=== PATIENT | female | born 1940 | race Caucasian/White ===

== ENCOUNTER 2017-06-02 19:23 | Observation (INO) | payer MEDICARE, OTHER ==
[2017-06-02] MEDS ORDERED: Zofran 4 MG/2 ML VIAL IV ONE (19:55)
[2017-06-02] MEDS ORDERED: BABY ASPIRIN 81 MG CHEW PO ONE (19:55)
[2017-06-02] MEDS ORDERED: PROTONIX 40 MG IV IV ONE ×2 (19:58→20:06)
[2017-06-02] MEDS ORDERED: Sodium Chloride 0.9% 1000 ML 1,000 ML IV SCH (20:00)
[2017-06-02] MEDS: Nitrostat 0.4 MG (ED) SL ONE ×3 (20:03→20:22)
[2017-06-02] MEDS ORDERED: Zofran 4 MG/2 ML VIAL ONE (20:06)
[2017-06-02] MEDS ORDERED: Sodium Chloride 0.9% 1000 ML 1,000 ML ONE (20:06)
[2017-06-02 20:07] LABS: BASOPHIL % 1.3 % (0.0-0.4); Basophil (Absolute #) 0.09 (0-0.4); Eosinophil % 10.2 % (0.00-5.0); Eosinophil (Absolute #) 0.73 (0-0.5); Granulocyte Absolute (ANC) 3.44 (1.4-6.9); Granulocytes % 47.9 % (36.0-66.0); Hemoglobin 13.1 gm/dl (12.0-16.0); Lymphocyte (Absolute #) 2.22 (1.0-4.6); Mean Cell Volume 95.8 fl (78-100); Mean Corpuscular Hemoglobin 30.6 pg (26-32); Mean Platelet Volume 10.6 fl (6-9.5); Monocyte (Absolute #) 0.69 (0.0-1.3); Monocytes % 9.6 % (0.0-12.0); Platelet Count 299 K/mm3 (150-450); Red Blood Count 4.28 M/mm3 (4.1-5.4); Red Cell Distribution Width 14.3 % (11.5-14.0); White Blood Count 7.2 K/mm3 (4.0-10.5)
[2017-06-02 20:24] LABS: INR 0.98 (0.8-3.0)
[2017-06-02 20:29] LABS: AMYLASE 58 U/L (30-110); LIPASE 50 U/L (23-300)
[2017-06-02 20:31] LABS: ALBUMIN 4.5 g/dl (3.5-5.0); ALKALINE PHOSPHATASE 101 U/L (38-126); ANION GAP 18.1 MEQ/L; BLOOD UREA NITROGEN 21 mg/dl (7-17); CHLORIDE 105 mEq/L (98-107); Calcium 9.8 mg/dl (8.4-10.2); Carbon Dioxide 24 mmol/L (22-30); Creatinine 1 0.78 mg/dl (0.52-1.04); Glucose 139 mg/dL (74-106); Potassium 4.2 mmol/L (3.5-5.1); SGOT/AST 16 U/L (14-36); SGPT/ALT 10 U/L (0-35); SODIUM 143 mmol/L (137-145); Total Protein 7.6 mg/dl (6.3-8.2)
[2017-06-02 20:39] LABS: NT PRO BNP 107 pg/ml (0-1800)
[2017-06-02] MEDS ORDERED: MORPHINE SULFATE 10 MG/ML ONE (20:39)
[2017-06-02] MEDS ORDERED: MORPHINE SULFATE 10 MG/ML IV ONE (20:39)
--- NOTE | 2017-06-02 20:51 | ERPHSYRPT ---
- History of Present Illness Time Seen by Provider: 06/02/17 20:00 Historian: patient Exam Limitations: clinical condition Patient Subjective Stated Complaint: pt states while eating a hamburger, it wouldnt go down and she began having nausea and dry heaves. Triage Nursing Assessment: pt alert and oreinted, answers questions approp. pt transfer from wheelchair to stretcher with minimal assist. pt dry heaving and vomiting frequently. small amt of undigested food in emesis. bowel sounds present. Physician History: PATIENT WITH A HISTORY OF CVA, HYPERTENSION, CORONARY ARTERY DISEASE PREVIOUS STENT, COMPLAINS OF CHEST PAIN WHILE SWALLOWING HAMBURGER, PAIN WITH SWALLOWING , ASSOCIATED WITH EPIGASTRIC PAINS AND CHEST PRESSURE. STATES PATIENT HAS HAD DIFFICULTY SWALLOWING HER FOOD OVER THE PAST YEAR. Timing/Duration: today Activities at Onset: none Quality: cramping, pressure, throbbing Location: substernal, epigastric Chest Pain Radiation: no radiation Severity of Pain-Max: severe Severity of Pain-Current: moderate Modifying Factors: Improves With: other (ONSET WHILE SWALLOWING FOOD) Associated Symptoms: nausea, vomiting (EPIGASTRIC PAIN) Prior Chest Pain/Cardiac Workup: cardiac cath (STENT INSERTION) Nitro Today/Relief: 0.4 mg x 3, provided by ED Aspirin Treatment Today: 81 mg x 4, provided by EMS Allergies/Adverse Reactions: cephalexin [From Keflex] Allergy (Verified 06/02/17 20:29) Home Medications: Aspirin EC 81 mg [Ecotrin 81 mg] 81 mg PO DAILY 06/02/17 [History] Carvedilol [Carvedilol] 6.75 mg PO BID 06/02/17 [History] Clopidogrel Bisulfate [Clopidogrel] 75 mg PO DAILY 06/02/17 [History] Gabapentin [Gabapentin] 300 mg PO BID 06/02/17 [History] Lisinopril [Lisinopril] 10 mg PO DAILY 06/02/17 [History] Metformin HCl 500 mg [Glucophage 500 MG] 500 mg PO BID 06/02/17 [History] Omeprazole [Prilosec] 20 mg PO DAILY 06/02/17 [History] Hx Tetanus, Diphtheria Vaccination/Date Given: No Hx Influenza Vaccination/Date Given: No Hx Pneumococcal Vaccination/Date Given: No Immunizations Up to Date: No - Review of Systems Constitutional: No Fever, No Chills Eyes: No Symptoms Ears, Nose, & Throat: No Symptoms Respiratory: No Symptoms, No Cough, No Dyspnea Cardiac: Chest Pain, No Edema, No Syncope Abdominal/Gastrointestinal: Abdominal Pain, Nausea, Melena, No Vomiting, No Diarrhea Genitourinary Symptoms: No Symptoms, No Dysuria Musculoskeletal: No Symptoms, No Back Pain, No Neck Pain Skin: No Rash Neurological: No Dizziness, No Focal Weakness, No Sensory Changes Psychological: No Symptoms Endocrine: No Symptoms All Other Systems: Reviewed and Negative - Past Medical History Neurological History: Stroke Cardiac History: Coronary Artery Disease, Hypertension Endocrine Medical History: Hyperthyroidism GI Medical History: Hernia - Past Surgical History Past Surgical History: Yes Cardiac: Cardiac Catheterization, Cardiac Stent Other Surgical History: carotid endarterectomy, - Social History Smoking Status: Never smoker Exposure to second hand smoke: No Drug Use: none Patient Lives Alone: No - Nursing Vital Signs Nursing Vital Signs: Initial Vital Signs Temperature 97.8 F 06/02/17 19:44 Pulse Rate 54 L 06/02/17 19:44 Respiratory Rate 20 06/02/17 19:44 Blood Pressure 222/112 06/02/17 19:44 O2 Sat by Pulse Oximetry 98 06/02/17 19:44 Pain Scale Pain Intensity 7 - Physical Exam General Appearance: no apparent distress, moderate distress, other (MARKED DRY HEAVES UPON ARRIVAL) Eye Exam: PERRL/EOMI Ears, Nose, Throat Exam: normal ENT inspection, moist mucous membranes Neck Exam: normal inspection, non-tender, supple, full range of motion Respiratory Exam: normal breath sounds, lungs clear, No respiratory distress Cardiovascular Exam: regular rate/rhythm, normal heart sounds Gastrointestinal/Abdomen Exam: soft, normal bowel sounds, tenderness (MARKED RIGHT UPPER ABDOMINAL AND EPIGASTRIC TENDERNESS), No mass Back Exam: normal inspection, No CVA tenderness, No vertebral tenderness Extremity Exam: normal inspection, normal range of motion Neurologic Exam: alert, oriented x 3, cooperative, normal mood/affect, sensation nml, No motor deficits Skin Exam: normal color, warm, dry SpO2 Interpretation: normal SpO2: 100 Oxygen Delivery: Nasal Cannula - Course EKG Interpreted by Me: RATE, Sinus Rhythm, Sinus Korey (EKG X 2 SINUS KOREY RATE 50 AND 60), NORMAL AXIS - CT Exams Chest CT Interpretation: Tele-radiologist Report (LARGE INTRATHORACIC HIATAL HERNIA, NO AORTIC DISSECTION) Abdomen/Pelvis CT Interpretation: Tele-radiologist Report (MULTIPLE GALLSTONES WITHIN THE GALLBLADDER) Ordered Tests: Active Orders 24 hr Category Date Time Status Thread Drawer STAT Care 06/02/17 19:55 Active Clean Catch Urine Specimen STAT Care 06/02/17 19:58 Active EKG-ER Only STAT Care 06/02/17 19:55 Active IV Insertion STAT Care 06/02/17 19:55 Active Oxygen-ED Only NASAL CANNULA 2 lpm Care 06/02/17 19:55 Active ABDOMEN AND PELVIS W CONTRAST [CT] Stat Exams 06/02/17 19:59 Taken CHEST WITH CONTRAST [CT] Stat Exams 06/02/17 19:55 Taken AMYLASE Stat Lab 06/02/17 20:04 Completed CBC W DIFF Stat Lab 06/02/17 20:04 Completed CMP Stat Lab 06/02/17 20:04 Completed LIPASE Stat Lab 06/02/17 20:04 Completed NT PRO BNP Stat Lab 06/02/17 20:04 Completed PROTIME WITH INR Stat Lab 06/02/17 20:04 Completed TROPONIN Q3H Lab 06/02/17 20:04 Completed TROPONIN Q3H Lab 06/02/17 23:00 Ordered TROPONIN Q3H Lab 06/03/17 02:00 Ordered TROPONIN Q3H Lab 06/03/17 05:00 Ordered TROPONIN Q3H Lab 06/03/17 08:00 Ordered UA W/RFX UR CULTURE Stat Lab 06/02/17 19:59 Ordered Medication Summary Generic Name Dose Route Start Last Admin Trade Name Freq PRN Reason Stop Dose Admin Sodium Chloride 1,000 mls @ 100 mls/hr 06/02/17 20:00 06/02/17 20:07 Sodium Chloride 0.9% 1000 Ml IV 07/02/17 19:59 100 mls/hr .Q10H AZIZA Administration Discontinued Medications Generic Name Dose Route Start Last Admin Trade Name Freq PRN Reason Stop Dose Admin Aspirin 324 mg 06/02/17 19:55 06/02/17 20:04 Baby Aspirin 81 Mg Chew PO 06/02/17 19:56 324 mg STAT ONE Administration Hydralazine HCl 15 mg 06/02/17 23:24 Apresoline 20 Mg/Ml Inj IV 06/02/17 23:25 STAT ONE Hydromorphone HCl 1 mg 06/02/17 21:32 06/02/17 21:40 Hydromorphone 1 Mg/Ml Ampule IV 06/02/17 21:33 1 mg STAT ONE Administration Hydromorphone HCl Confirm 06/02/17 21:39 Dilaudid 2 Mg Injection Administered 06/02/17 21:40 Dose 2 mg .ROUTE .STK-MED ONE Morphine Sulfate 6 mg 06/02/17 20:39 06/02/17 20:41 Morphine Sulfate 10 Mg/Ml IV 06/02/17 20:40 6 mg STAT ONE Administration Morphine Sulfate Confirm 06/02/17 20:39 Morphine Sulfate 10 Mg/Ml Administered 06/02/17 20:40 Dose 10 mg .ROUTE .STK-MED ONE Nitroglycerin 0.4 mg 06/02/17 19:55 06/02/17 20:22 Nitrostat 0.4 Mg (Ed) SL 06/02/17 19:56 0.4 mg STAT ONE Administration Ondansetron HCl 4 mg 06/02/17 19:55 06/02/17 20:07 Zofran 4 Mg/2 Ml Vial IV 06/02/17 19:56 4 mg STAT ONE Administration Ondansetron HCl Confirm 06/02/17 20:06 Zofran 4 Mg/2 Ml Vial Administered 06/02/17 20:07 Dose 4 mg .ROUTE .STK-MED ONE Pantoprazole Sodium 40 mg 06/02/17 19:58 06/02/17 20:07 Protonix 40 Mg Iv IV 06/02/17 19:59 40 mg STAT ONE Administration Pantoprazole Sodium Confirm 06/02/17 20:06 Protonix 40 Mg Iv Administered 06/02/17 20:07 Dose 40 mg IV .STK-MED ONE Lab/Rad Data: Laboratory Result Diagrams 06/02/17 20:04 06/02/17 20:04 Laboratory Results 06/02/17 06/02/17 06/02/17 Range/Units 20:04 20:04 20:04 WBC (4.0-10.5) K/mm3 RBC (4.1-5.4) M/mm3 Hgb (12.0-16.0) gm/dl Hct (35-47) % MCV (78-100) fl MCH (26-32) pg MCHC (32-36) g/dl RDW (11.5-14.0) % Plt Count (150-450) K/mm3 MPV (6-9.5) fl Gran % (36.0-66.0) % Lymphocytes % (24.0-44.0) % Monocytes % (0.0-12.0) % Eosinophils % (0.00-5.0) % Basophils % (0.0-0.4) % Basophils # (0-0.4) INR 0.98 (0.8-3.0) Sodium (137-145) mmol/L Potassium (3.5-5.1) mmol/L Chloride (98-107) mEq/L Carbon Dioxide (22-30) mmol/L Anion Gap MEQ/L BUN (7-17) mg/dl Creatinine (0.52-1.04) mg/dl Estimated GFR ML/MIN Glucose (74-106) mg/dL Calcium (8.4-10.2) mg/dl Total Bilirubin (0.2-1.3) mg/d? AST (14-36) U/L ALT (0-35) U/L Alkaline Phosphatase (38-126) U/L Troponin I < 0.012 (0.000-0.034) ng/ml NT-Pro-B Natriuret Pep (0-1800) pg/ml Serum Total Protein (6.3-8.2) mg/dl Albumin (3.5-5.0) g/dl Amylase 58 (30-110) U/L Lipase 50 (23-300) U/L 06/02/17 06/02/17 Range/Units 20:04 20:04 WBC 7.2 (4.0-10.5) K/mm3 RBC 4.28 (4.1-5.4) M/mm3 Hgb 13.1 (12.0-16.0) gm/dl Hct 41.0 (35-47) % MCV 95.8 (78-100) fl MCH 30.6 (26-32) pg MCHC 32.0 (32-36) g/dl RDW 14.3 H (11.5-14.0) % Plt Count 299 (150-450) K/mm3 MPV 10.6 H (6-9.5) fl Gran % 47.9 (36.0-66.0) % Lymphocytes % 31.0 (24.0-44.0) % Monocytes % 9.6 (0.0-12.0) % Eosinophils % 10.2 H (0.00-5.0) % Basophils % 1.3 (0.0-0.4) % Basophils # 0.09 (0-0.4) INR (0.8-3.0) Sodium 143 (137-145) mmol/L Potassium 4.2 (3.5-5.1) mmol/L Chloride 105 (98-107) mEq/L Carbon Dioxide 24 (22-30) mmol/L Anion Gap 18.1 MEQ/L BUN 21 H (7-17) mg/dl Creatinine 0.78 (0.52-1.04) mg/dl Estimated GFR > 60 ML/MIN Glucose 139 H (74-106) mg/dL Calcium 9.8 (8.4-10.2) mg/dl Total Bilirubin 0.40 (0.2-1.3) mg/d? AST 16 (14-36) U/L ALT 10 (0-35) U/L Alkaline Phosphatase 101 (38-126) U/L Troponin I (0.000-0.034) ng/ml NT-Pro-B Natriuret Pep 107 (0-1800) pg/ml Serum Total Protein 7.6 (6.3-8.2) mg/dl Albumin 4.5 (3.5-5.0) g/dl Amylase (30-110) U/L Lipase (23-300) U/L - Progress Progress: improved Progress Note: 06/02/17 21:03 ADMINISTERED 4 BABY ASPIRIN, NITRO 0.4MG Q 5 MIN X 3 DOSES, IV LR 100ML/HR, ZOFRAN 4MG, PROTONIX 40MG IV, MORPHINE 6,MG IV, FOLLOWED BY DILAUDID 1MG 06/02/17 23:19, HYDRALAZINE 15MG IV Blood Culture(s) Obtained: Yes Discussed with : Rios (DISCUSSED WITH DR NARANJO AT 2315 FOR ADMISSION) - Departure Time of Disposition: 23:35 Departure Disposition: In-patient Admission Clinical Impression: ACUTE CHEST PAIN, CHOLELITHIASIS Condition: Stable Critical Care Time: No Referrals: KAVON NARANJO MD [Primary Care Provider] -
[2017-06-02] MEDS ORDERED: Hydromorphone 1 mg/ml Ampule IV ONE (21:32)
[2017-06-02] MEDS ORDERED: DILAUDID 2 MG INJECTION ONE (21:39)
[2017-06-02] MEDS ORDERED: APRESOLINE 20 MG/ML INJ ONE (23:23)
[2017-06-02] MEDS ORDERED: APRESOLINE 20 MG/ML INJ IV ONE (23:24)
[2017-06-02] MEDS ORDERED: NITRO-BID 2% UD PACKETS TOP ONE (23:31)
[2017-06-02] MEDS ORDERED: NITRO-BID 2% UD PACKETS ONE (23:38)
[2017-06-03] MEDS ORDERED: Sodium Chloride 0.9% 500 ML 500 ML IV SCH (00:48)
[2017-06-03] MEDS ORDERED: Zofran 4 MG/2 ML VIAL IV PRN (00:48)
[2017-06-03] MEDS ORDERED: MORPHINE SULFATE 4 MG INJ IV PRN (00:48)
[2017-06-03] MEDS ORDERED: Nitrostat 0.4 MG Tablet SL PRN (00:48)
[2017-06-03] MEDS ORDERED: APRESOLINE 20 MG/ML INJ IV PRN (00:48)
[2017-06-03] MEDS ORDERED: PROTONIX 40 MG IV IV SCH ×2 (00:48→22:00)
[2017-06-03 05:51] LABS: Appearance HAZY (CLEAR); Bilirubin NEGATIVE (NEGATIVE); Blood NEGATIVE Ery/ul (0-5); Glucose NEGATIVE (NEGATIVE); Ketones NEGATIVE (NEGATIVE); Leukocyte Esterase TRACE (NEGATIVE); Nitrite POSITIVE (NEGATIVE); Protein,Urine Dip TRACE (Negative); Specific Gravity 1.015 (1.005-1.025); Urobilinogen NORMAL mg/dL (0-1)
[2017-06-03 05:52] LABS: Risk Ratio 4.2
[2017-06-03 05:52] LABS: Bacteria PACKED /HPF (NEGATIVE); Epithelial Cells FEW /HPF (FEW)
[2017-06-03 06:03] LABS: LDL, DIRECT 114.56 mg/dL (30-100)
[2017-06-03] MEDS: NITRO-BID 2% UD PACKETS TOP SCH ×3 (06:19→22:33)
--- NOTE | 2017-06-03 08:46 | XRAY ---
Indication: Chest and epigastric pain. Hiatal hernia. Multiple contiguous axial images obtained through the chest using 80 cc Isovue 370 contrast. Comparison: None. Lungs demonstrate moderate bilateral dependent atelectasis and biapical pleural parenchymal fibrosis/scarring. 5 mm right middle lobe noncalcified nodule. Heart is not enlarged. Aorta is normal in course and caliber. No pathologic mediastinal/hilar lymphadenopathy. Large hiatal hernia with partial intrathoracic fluid-filled stomach. The esophagus is also mildly fluid distended presumed from gastroesophageal reflux. Bony thorax intact with mild degenerative changes throughout the spine. CT abdomen reported separately. Impression: 1. Large hiatal hernia with partial intrathoracic fluid filled stomach and suggestion for gastroesophageal reflux. 2. 5 mm right middle lobe noncalcified nodule. Comparison studies would be of benefit if performed elsewhere. Otherwise recommend follow-up per Fleischner guidelines. Comment: Preliminary interpretation was made by [facility]. No discrepancy. CT DI 16.54
--- NOTE | 2017-06-03 08:54 | XRAY ---
Indication: Chest and epigastric pain. Hiatal hernia. Multiple contiguous axial images obtained through the abdomen and pelvis using 80 cc Isovue 370 contrast only. Comparison: None. CT chest reported separately. Noncontrasted stomach and bowel loops appear nonobstructed. Moderate diffuse scattered colonic fecal debris throughout. Minimal sigmoid diverticulosis without diverticulitis. Several tiny gallstones near the neck of the gallbladder without features for cholecystitis. Remaining liver, pancreas, spleen, adrenal glands, kidneys, ureters, bladder, and uterus appear unremarkable. Mild aortoiliac calcifications. No AAA or pathologic retroperitoneal lymphadenopathy. Osseous structures intact with moderate multilevel degenerative spondylosis greatest at the lumbosacral junction. Also mild levorotoscoliosis centered at the L2-L3 level. Impression: 1. Fecal stasis without obstruction. 2. Colonic diverticulosis. 3. Gallstones better evaluated with ultrasound if clinically warranted. Comment: Preliminary interpretation was made by [facility]. No critical discrepancy. CT DI 16.54
--- NOTE | 2017-06-03 09:26 | PCM.HP ---
History of Present Illness - Chief Complaint Chief Complaint: Acute Chest Pain, Cholelithiasis History of Present Illness: is a 77 year old female who got choked on a hamburger last night, she developed pain in the epigastrium and profuse vomiting. Was unable to keep down liquids, it passed eventually by the time she arrived but was having pain in the chest that was dull. She reports occaisonal dysphagia and choking on things worsening. Has a known history of hiatal hernia. Has no pain this morning and is feeling better. - Review of Systems Constitutional: No Fever, No Chills Respiratory: No Cough, No Short Of Breath Cardiac: Chest Pain, No Edema, No Palpitations, No Syncope Abdominal/Gastrointestinal: Abdominal Pain, Nausea, Vomiting, Dysphagia, No Diarrhea, No Constipation, No Hematemesis, No Hematochezia Genitourinary Symptoms: No Dysuria Skin: No Rash Neurological: No Dizziness, No Focal Weakness, No Sensory Changes All Other Systems: Reviewed and Negative Medications & Allergies Home Medications: Home Medication List Aspirin EC 81 mg [Ecotrin 81 mg] 81 mg PO DAILY 06/02/17 [History Confirmed 06/02/17] Carvedilol [Carvedilol] 6.75 mg PO BID 06/02/17 [History Confirmed 06/02/17] Clopidogrel Bisulfate [Clopidogrel] 75 mg PO DAILY 06/02/17 [History Confirmed 06/02/17] Gabapentin [Gabapentin] 300 mg PO BID 06/02/17 [History Confirmed 06/02/17] Lisinopril [Lisinopril] 10 mg PO DAILY 06/02/17 [History Confirmed 06/02/17] Metformin HCl 500 mg [Glucophage 500 MG] 500 mg PO BID 06/02/17 [History Confirmed 06/02/17] Omeprazole [Prilosec] 20 mg PO DAILY 06/02/17 [History Confirmed 06/02/17] Levothyroxine Sodium 75 Mcg [Synthroid 75 Mcg] 75 mcg PO DAILY 06/03/17 [ History Confirmed 06/03/17] Allergies/Adverse Reactions: Allergies Allergy/AdvReac Type Severity Reaction Status Date / Time cephalexin [From Keflex] Allergy Verified 06/02/17 20:29 - Past Medical History Past Medical History: Yes Neurological History: Peripheral Neuropathy, TIA ENT History: Cataracts Cardiac History: Coronary Artery Disease, Hypertension Respiratory History: COPD Endocrine Medical History: Hyperthyroidism Musculoskelatal History: Fractures GI Medical History: Hernia History: No Pertinent History Pyscho-Social History: Anxiety Reproductive Disorders: No Pertinent History Comment: wears pessary for bladder , r ankle break in 3 places, - Female History Are you now?: No - Past Surgical History Past Surgical History: Yes Neuro Surgical History: No Pertinent History Cardiac History: Cardiac Catheterization, Cardiac Stent Respiratory Surgery: No Pertinent History GI Surgical History: No Pertinent History Genitourinary Surgical Hx: No Pertinent History Musculskeletal Surgical Hx: No Pertinent History Female Surgical History: No Pertinent History Other Surgical History: carotid endarterectomy, cyst removed from back - Social History Smoking Status: Never smoker Exposure to second hand smoke: Yes Alcohol: None Drug Use: none - Physical Exam Vital Signs: Vital Signs - 24 hr Temp Pulse Resp BP Pulse Ox 06/03/17 07:42 96 06/03/17 07:06 98.6 F 70 16 101/51 96 06/03/17 04:48 96 06/03/17 04:00 97.6 F 77 18 114/56 95 06/03/17 01:36 97.9 F 85 20 156/69 97 06/03/17 00:48 98 06/02/17 23:53 85 18 163/80 98 06/02/17 23:40 100 06/02/17 23:19 71 18 190/83 98 06/02/17 22:13 68 18 191/81 100 06/02/17 21:27 52 L 18 184/80 100 06/02/17 20:37 53 L 18 162/77 100 06/02/17 20:22 58 L 20 165/77 98 06/02/17 20:12 56 L 20 177/96 98 06/02/17 19:44 97.8 F 54 L 20 222/112 98 Oxygen-Last 24 hours O2 Percentage 2 Liters = 28% O2 Percentage 2 Liters = 28% O2 Percentage 2 Liters = 28% O2 Percentage 2 Liters = 28% O2 Percentage 2 Liters = 28% O2 Percentage 2 Liters = 28% O2 Percentage 2 Liters = 28% O2 Percentage 2 Liters = 28% Oxygen Flowrate (L/min)-RT 2 Oxygen Flowrate (L/min)-RT 2 General Appearance: no apparent distress, alert Neurologic Exam: alert, oriented x 3, cooperative, normal mood/affect, nml cerebellar function, nml station & gait, sensation nml, No motor deficits Eye Exam: PERRL/EOMI, eyes nml inspection Ears, Nose, Throat Exam: normal ENT inspection, TMs normal, pharynx normal, moist mucous membranes Neck Exam: normal inspection, non-tender, supple, full range of motion Respiratory Exam: normal breath sounds, lungs clear, No respiratory distress Cardiovascular Exam: regular rate/rhythm, normal heart sounds, normal peripheral pulses Gastrointestinal/Abdomen Exam: soft, normal bowel sounds, No tenderness, No mass Extremity Exam: normal inspection, normal range of motion, pelvis stable Results - Labs Lab/Micro Results: Lab Results-Last 24 Hours 06/03/17 06/03/17 06/03/17 Range/Units 02:37 05:00 05:00 Troponin I < 0.012 < 0.012 (0.000-0.034) ng/ml Triglycerides 121 (30-150) mg/dl Cholesterol 189 (50-200) mg/dl LDL Cholesterol 114.56 H (30-100) mg/dL HDL Cholesterol 45 (40-60) mg/dl Heart Disease Risk Ratio 4.2 - Other Procedures and Tests Respiratory Therapy 06/04/17 05:00 EKG ROUTINE 06/05/17 05:00 EKG ROUTINE 06/06/17 05:00 EKG ROUTINE Assessment/Plan (1) Chest pain Current Visit: Yes Status: Acute Assessment & Plan: seems noncardiac and related to dysphagia/hiatal hernia. will consult surgery. may required EGD and possible dilation so will defer to surgery in case of needed intervention. Code(s): R07.9 - CHEST PAIN, UNSPECIFIED (2) Dysphagia Current Visit: Yes Status: Acute Code(s): R13.10 - DYSPHAGIA, UNSPECIFIED (3) Hiatal hernia Current Visit: Yes Status: Acute Assessment & Plan: concern for possible stricture related to hiatal hernia. will keep npo and await surgical consult. IV protonix Code(s): K44.9 - DIAPHRAGMATIC HERNIA WITHOUT OBSTRUCTION OR GANGRENE (4) Gallstones Current Visit: Yes Status: Acute Assessment & Plan: does not appear emergent, appreciate surgery input but may need to deal with hiatal hernia/dysphagia more immediately and gallstones as outpatient electively Code(s): K80.20 - CALCULUS OF GALLBLADDER W/O CHOLECYSTITIS W/O OBSTRUCTION
[2017-06-03] MEDS ORDERED: ANUSOL-HC 2.5% CREAM 30 GM TP PRN (09:45)
[2017-06-03] MEDS ORDERED: Ecotrin 325 MG PO SCH (10:00)
[2017-06-03 10:20] LABS: INR 1.02 (0.8-3.0)
[2017-06-03 10:22] LABS: PTT 28.3 SECONDS (25.3-37.0)
[2017-06-03] MEDS: Zestril 10 MG PO SCH (11:27)
[2017-06-03] MEDS: SYNTHROID 75 MCG PO SCH (11:27)
[2017-06-03] MEDS ORDERED: Sodium Chloride 0.9% 1000 ML 1,000 ML IV SCH (12:00)
[2017-06-03] MEDS: Coreg 6.25 MG PO SCH ×2 (12:01→22:32)
[2017-06-03] MEDS ORDERED: Sodium Chloride 0.9% 1000 ML 1,000 ML ONE (14:58)
--- NOTE | 2017-06-03 15:42 | CONS ---
CONSULT DATE: 06/03/2017 HISTORY: The patient is a 70 year-old who apparently had some dysphagia and some epigastric pain. She had a CT done yesterday apparently showed large hiatal hernia, some fluid in the stomach and some reflux. She had incidental gallstones. She was not really complaining of any abdominal pain yesterday mainly dysphagia. She denied any bloody stools. PAST MEDICAL HISTORY: Hypothyroidism, hypertension, diabetes, heart disease. History of hiatal hernia, history of stroke in the past. PAST SURGICAL HISTORY: She denied prior endoscopy. She has problems with food sticking near the lower esophagus area. Coronary endarterectomy, coronary stents in the past. HOME MEDICATIONS: Aspirin, carvedilol, Plavix, gabapentin, lisinopril, Metformin, omeprazole, levothyroxine. ALLERGIES: KEFLEX. FAMILY HISTORY: Negative in regards to this problem. REVIEW OF SYSTEMS: Twelve systems reviewed per admission assessment. No chest pain or palpitations other systems negative or noncontributory as above and per preadmission questionnaire. PHYSICAL EXAMINATION: GENERAL: No acute distress. HEENT: Sclera nonicteric. NECK: No JVD. CHEST: Equal excursion, nonlabored breathing. CVS: Regular rate and rhythm. ABDOMEN: Soft. No peritoneal signs. EXTREMITIES: No significant edema. NEURO: Alert, moving extremities grossly symmetrically. No gross motor deficits noted. LAB DATA AND TESTS: White blood cell count 7.2 yesterday, hemoglobin 13.1, PLT 299,000. Liver function tests were okay. Total bilirubin 0.4, alkaline phosphatase 101. IMPRESSION: Dysphagia, problem swallowing, hiatal hernia. Whether she has a narrowed area or not is unclear. I feel she would benefit from EGD possible biopsy, possible dilatation when OR time available. Risks and benefits of bleeding or infection, risk of bowel injury or perforation possibly requiring open procedure, risk of ongoing morbidity/mortality, risk of missed or nondiagnosis or incomplete exam, small risk of aspiration during hiatal hernia, general risk of anesthesia, deep venous thrombosis, pulmonary embolism, pneumonia, perioperative risk of aches, pains possible dilatation performed may not improve her symptoms. She understands there is possibility if she did improve with dilatation she may need repeat in the future. She understands she does have a large hiatal hernia as she is beginning to have symptoms occasionally will also repair but there is a very high risk of recurrence, risk of morbidity. She has got some tiny gallstones on CT scan but there are no signs of any cholecystitis, if still remains to have issues related to reflux and/or dysphagia could have a narrowing so recommend doing EGD, possible biopsy, possible dilatation first. If she fails to improve or have persistent symptoms could check out ultrasound, HIDA scan or other work up. She understands and agrees to the planned procedure, will proceed with EGD, possible biopsy, possible dilatation when OR time available. If she should fail to improve down the road proceed with gallbladder intervention at that time.
[2017-06-03] MEDS ORDERED: TYLENOL 325 MG PO PRN (18:14)
[2017-06-04] MEDS: NITRO-BID 2% UD PACKETS TOP SCH (05:08)
[2017-06-04 06:13] LABS: BASOPHIL % 0.8 % (0.0-0.4); Basophil (Absolute #) 0.05 (0-0.4); Eosinophil % 8.7 % (0.00-5.0); Eosinophil (Absolute #) 0.54 (0-0.5); Granulocyte Absolute (ANC) 3.94 (1.4-6.9); Granulocytes % 63.3 % (36.0-66.0); Hematocrit 34.6 % (35-47); Hemoglobin 10.8 gm/dl (12.0-16.0); Lymphocyte (Absolute #) 1.13 (1.0-4.6); Lymphocytes % 18.2 % (24.0-44.0); Mean Corpuscular Hgb Concent. 31.2 g/dl (32-36); Mean Platelet Volume 10.7 fl (6-9.5); Monocyte (Absolute #) 0.56 (0.0-1.3); Platelet Count 245 K/mm3 (150-450); Red Blood Count 3.53 M/mm3 (4.1-5.4); Red Cell Distribution Width 14.5 % (11.5-14.0); White Blood Count 6.2 K/mm3 (4.0-10.5)
[2017-06-04 06:14] LABS: Mean Corpuscular Hemoglobin 30.5 pg (26-32)
[2017-06-04 06:41] LABS: ALBUMIN 3.5 g/dl (3.5-5.0); ALKALINE PHOSPHATASE 78 U/L (38-126); ANION GAP 12.4 MEQ/L; BLOOD UREA NITROGEN 16 mg/dl (7-17); CHLORIDE 106 mEq/L (98-107); Calcium 8.8 mg/dl (8.4-10.2); Carbon Dioxide 26 mmol/L (22-30); Creatinine 1 0.79 mg/dl (0.52-1.04); Glucose 101 mg/dL (74-106); Potassium 4.2 mmol/L (3.5-5.1); SGOT/AST 12 U/L (14-36); SGPT/ALT 9 U/L (0-35); SODIUM 140 mmol/L (137-145)
[2017-06-04 07:10] VITALS: BP 156/67; PULSE 70; O2SAT 97
--- NOTE | 2017-06-04 07:38 | PCM.DS ---
Discharge Summary Date of Admission: 06/03/17 00:44 Admitting Physician: KAVON NARANJO Consults: Consults on Case 06/03/17 09:18 Consult Surgery ROUTINE Primary Care Provider: KAVON NARANJO Allergies Allergies cephalexin [From Keflex] Allergy (Verified 06/02/17 20:29) Hospital Summary - Hospital Course Hospital Course: patient was admitted with an episode of choking, intermittent dysphagia. had some chest pain after choking on a hamburger. cardiac markers were negative, nothing acute on EKG. chest pain was GI related. had EGD and dilation by Dr Leung, feeling well today. will feed soft diet and if tolerates may go home, will hold asa/plavix x 1 week and increase omeprazole from 20mg to 40mg - Vitals & Intake/Output Vital Signs: Vital Signs Temperature 97.5 F 06/04/17 07:08 Pulse Rate 70 06/04/17 07:08 Respiratory Rate 18 06/04/17 07:08 Blood Pressure 156/67 06/04/17 07:08 O2 Sat by Pulse Oximetry 97 06/04/17 07:08 Oxygen-Last Documented O2 Percentage 2 Liters = 28% Intake & Output: Intake & Output 06/01/17 06/02/17 06/03/17 06/04/17 11:59 11:59 11:59 11:59 Intake Total 65 1307 Output Total 400 1550 Balance -335 -243 Weight 72.8 kg 72.4 kg - Lab Result Diagrams: 06/04/17 05:35 06/04/17 05:35 Lab Results-Last 24 Hrs: Accuchecks Date 06/04/17 Date 06/04/17 Date 06/03/17 Time 04:00 Time 00:00 Time 20:00 Accucheck Value: 108 Accucheck Value: 104 Accucheck Value: 119 Accucheck Value: 90 Accucheck Value: 84 Lab Results-Last 24 Hours 06/03/17 06/03/17 06/03/17 Range/Units 05:00 08:00 16:09 WBC (4.0-10.5) K/mm3 RBC (4.1-5.4) M/mm3 Hgb (12.0-16.0) gm/dl Hct (35-47) % MCV (78-100) fl MCH (26-32) pg MCHC (32-36) g/dl RDW (11.5-14.0) % Plt Count (150-450) K/mm3 MPV (6-9.5) fl Gran % (36.0-66.0) % Lymphocytes % (24.0-44.0) % Monocytes % (0.0-12.0) % Eosinophils % (0.00-5.0) % Basophils % (0.0-0.4) % Basophils # (0-0.4) INR 1.02 (0.8-3.0) APTT 28.3 (25.3-37.0) SECONDS Sodium (137-145) mmol/L Potassium (3.5-5.1) mmol/L Chloride (98-107) mEq/L Carbon Dioxide (22-30) mmol/L Anion Gap MEQ/L BUN (7-17) mg/dl Creatinine (0.52-1.04) mg/dl Estimated GFR ML/MIN Glucose (74-106) mg/dL Hemoglobin A1c 6.29 H (4.5-6.0) Calcium (8.4-10.2) mg/dl Total Bilirubin (0.2-1.3) mg/d? AST (14-36) U/L ALT (0-35) U/L Alkaline Phosphatase (38-126) U/L Troponin I 0.019 (0.000-0.034) ng/ml Serum Total Protein (6.3-8.2) mg/dl Albumin (3.5-5.0) g/dl 06/04/17 06/04/17 Range/Units 05:35 05:35 WBC 6.2 (4.0-10.5) K/mm3 RBC 3.53 L (4.1-5.4) M/mm3 Hgb 10.8 L (12.0-16.0) gm/dl Hct 34.6 L (35-47) % MCV 98.0 (78-100) fl MCH 30.5 (26-32) pg MCHC 31.2 L (32-36) g/dl RDW 14.5 H (11.5-14.0) % Plt Count 245 (150-450) K/mm3 MPV 10.7 H (6-9.5) fl Gran % 63.3 (36.0-66.0) % Lymphocytes % 18.2 L (24.0-44.0) % Monocytes % 9.0 (0.0-12.0) % Eosinophils % 8.7 H (0.00-5.0) % Basophils % 0.8 (0.0-0.4) % Basophils # 0.05 (0-0.4) INR (0.8-3.0) APTT (25.3-37.0) SECONDS Sodium 140 (137-145) mmol/L Potassium 4.2 (3.5-5.1) mmol/L Chloride 106 (98-107) mEq/L Carbon Dioxide 26 (22-30) mmol/L Anion Gap 12.4 MEQ/L BUN 16 (7-17) mg/dl Creatinine 0.79 (0.52-1.04) mg/dl Estimated GFR > 60 ML/MIN Glucose 101 (74-106) mg/dL Hemoglobin A1c (4.5-6.0) Calcium 8.8 (8.4-10.2) mg/dl Total Bilirubin 0.40 (0.2-1.3) mg/d? AST 12 L (14-36) U/L ALT 9 (0-35) U/L Alkaline Phosphatase 78 (38-126) U/L Troponin I (0.000-0.034) ng/ml Serum Total Protein 6.0 L (6.3-8.2) mg/dl Albumin 3.5 (3.5-5.0) g/dl Micro Results-Entire Visit: Accuchecks Date 06/04/17 Date 06/04/17 Date 06/03/17 Time 04:00 Time 00:00 Time 20:00 Accucheck Value: 108 Accucheck Value: 104 Accucheck Value: 119 Accucheck Value: 90 Accucheck Value: 84 - Procedures and Test Procedures and Tests throughout Hospitalization: Therapy Orders & Screens 06/03/17 04:46 EKG ROUTINE Comment: Diagnosis: ACUTE CHEST PAIN 06/04/17 05:00 EKG ROUTINE Comment: Diagnosis: ACUTE CHEST PAIN 06/05/17 05:00 EKG ROUTINE Comment: Diagnosis: ACUTE CHEST PAIN 06/06/17 05:00 EKG ROUTINE Comment: Diagnosis: ACUTE CHEST PAIN Discharge Exam General Appearance: no apparent distress, alert Respiratory Exam: normal breath sounds, lungs clear, No respiratory distress Cardiovascular Exam: regular rate/rhythm, normal heart sounds Gastrointestinal/Abdomen Exam: soft, No tenderness, No mass Extremity Exam: normal inspection, normal range of motion Final Diagnosis/Problem List - Final Discharge Diagnosis/Problem (1) Chest pain Current Visit: Yes Status: Acute (2) Dysphagia Current Visit: Yes Status: Acute (3) Hiatal hernia Current Visit: Yes Status: Acute (4) Gallstones Current Visit: Yes Status: Acute - Discharge Disposition: Home, Self-Care Condition: Stable Prescriptions: New Omeprazole 40 mg PO DAILY #30 capsule. PANTOPRAZOLE 40 mg Tablet [Protonix 40MG Tablet] 40 mg PO QPM #30 tab Continue Aspirin EC 81 mg [Ecotrin 81 mg] 81 mg PO DAILY Metformin HCl 500 mg [Glucophage 500 MG] 500 mg PO BID Lisinopril 10 mg PO DAILY Gabapentin 300 mg PO BID Carvedilol 6.75 mg PO BID Levothyroxine Sodium 75 Mcg [Synthroid 75 Mcg] 75 mcg PO DAILY Discontinued Omeprazole [Prilosec] 20 mg PO DAILY Clopidogrel Bisulfate [Clopidogrel] 75 mg PO DAILY Follow up with: CHRIS LEUNG [COURTESY STAFF] - 06/09/17 9:30 am ([facility])
--- NOTE | 2017-06-04 07:45 | OP ---
SURGERY DATE/TIME: 06/03/2017 1508 PREOPERATIVE DIAGNOSIS: Dysphagia, some epigastric discomfort and some reflux, incidental gallstones. POSTOPERATIVE DIAGNOSES: 1) Mild gastritis. 2) Hiatal hernia. 3) Distal esophageal narrowing. PROCEDURES: 1) EGD with cold biopsy of the small bowel to evaluate for celiac sprue. 2) Cold biopsy of the antrum to evaluate for Helicobacter pylori. 3) Esophageal balloon dilatation of distal esophageal narrowing and stricture. SURGEON: Dr. Tom Yeh. ANESTHESIA: MAC. ESTIMATED BLOOD LOSS: Minimal. INDICATIONS: As noted above. Risks and benefits explained in detail and not limited to and consent obtained. DESCRIPTION OF PROCEDURE AND FINDINGS: The patient is taken to the operating room. MAC anesthesia introduced. After official time out and no disagreement with planned procedure, a bite block positioned. Video gastroscope easily passed down the proximal esophagus. There is a definite narrowed area whether Schatzki's ring or just narrowed from hiatal hernia and some mild chronic reflux. No obvious mass to biopsy. No evidence of Lopez's or esophagitis but a narrowed area, Schatzki's ring. The scope was able to be passed through here at medium-sized hiatal hernia down through the stomach where she had some mild gastritis through the patent pylorus to the junction of the second and third portion of the duodenum. Given her symptom complaints cold biopsy was taken of the small bowel to evaluate for celiac disease. The scope pulled back into the stomach. Cold biopsy taken to evaluate for Helicobacter pylori. Good hemostasis noted. On retroflex she did have hiatal hernia. She did have a small gastric polyp up closer to the fundus that was removed with cold biopsy forceps. Otherwise no signs of any ulcers. No signs of masses or other mucosal lesions. Mild gastritis and hiatal hernia. The scope was straightened. Gastroesophageal junction noted to be about 35 cm. Again no signs of any obvious Lopez's or any evidence of erosive esophagitis. She did have a narrowed area here where she is complaining of symptoms. It was felt she warranted dilating this area up. The remainder of the esophagus mucosa unremarkable. No signs of any masses or other mucosal lesions. The scope passed back down in the stomach. Size 20 balloon catheter carefully inserted and then pulled back up to the narrowed area. The balloon catheter carefully pulled back up to the narrowed area which was carefully inflated to first stage for 45 seconds, second stage for 45 seconds, final stage size 20 balloon dilator for 10 minutes. Balloon catheter is then decompressed and withdrawn. The scope much more easily passed through this narrowed area that was much more patent post-dilatation. There were no signs of any full thickness issues or injury secondary to dilatation. The scope passed back down in the stomach and decompressed. Hiatal hernia decompressed. The scope withdrawn. The patient tolerated the procedure well. There were no immediate complications. Findings discussed with the family in the waiting area. Will start her on liquids and if she tolerates a diet she can be released and follow up in the office as an outpatient to discuss if she is further going to have surgery for these tiny gallstones she will need cardiac clearance and be off of Plavix for several days barring the urgent need for any surgery but she does not appear to need any emergent gallbladder or hiatal hernia surgery at this time.
[2017-06-04] MEDS: Zestril 10 MG PO SCH (08:22)
[2017-06-04] MEDS: SYNTHROID 75 MCG PO SCH (08:22)
[2017-06-04] MEDS ORDERED: Versed 2 MG/2 ML Injection IV ONE (09:33)
[2017-06-04] MEDS ORDERED: SUBLIMAZE 100 MCG/2 ML IV ONE (09:33)
[2017-06-04] MEDS ORDERED: DIPRIVAN 200 MG/20 ML IV ONE (09:33)
[2017-06-04] MEDS ORDERED: Coreg 6.25 MG PO SCH ×2 (10:00)
== END 2017-06-04 09:34 | disposition home or self-care (01) ==
LOC: ED 19:23 → MED SURG 06-03 00:44
PROVIDERS: ADMIT Family Medicine; ATTEND Family Medicine
PROC: 0DB78ZX Excision of Stomach, Pylorus, Via Natural or Artificial Opening Endoscopic, Diagnostic (ICD-10-PCS; principal; 2017-06-03)
PROC: 0DB88ZX Excision of Small Intestine, Via Natural or Artificial Opening Endoscopic, Diagnostic (ICD-10-PCS; 2017-06-03)
PROC: 0D738ZZ Dilation of Lower Esophagus, Via Natural or Artificial Opening Endoscopic (ICD-10-PCS; 2017-06-03)
DX: R07.9 Chest pain, unspecified (principal); R13.10 Dysphagia, unspecified; K44.9 Diaphragmatic hernia without obstruction or gangrene; K80.20 Calculus of gallbladder without cholecystitis without obstruction; Z79.899 Other long term (current) drug therapy; Z86.73 Personal history of transient ischemic attack (TIA), and cerebral infarction without residual deficits; Z79.82 Long term (current) use of aspirin; G62.9 Polyneuropathy, unspecified; I25.10 Atherosclerotic heart disease of native coronary artery without angina pectoris; I10 Essential (primary) hypertension; E05.91 Thyrotoxicosis, unspecified with thyrotoxic crisis or storm; R10.13 Epigastric pain; K29.70 Gastritis, unspecified, without bleeding; K22.2 Esophageal obstruction
CPT/HCPCS: 82962 ×3; 93268 ×2; 93041; 96374; 99285; 36000; 96360; 96361; 96375; 93005 ×3; 82150; 81000; 85610 ×2; 85730; 36415 ×3; 83721; 83036; 83690; 83880; 87186; 85025 ×2; 87077; 80053 ×2; 80061; 84484 ×2; 87086; 74177; 71260; 43239; 43249; C1726; 88305; 99100; G0378; J0360; J1170; J2250; J2270; J2405; J2704; J3010; A9270-GY

== ENCOUNTER 2020-09-22 20:10 | Emergency (ER) | payer MEDICARE, OTHER ==
[2020-09-22] MEDS ORDERED: solu-MEDROL 125 MG IM ONE (20:33)
--- NOTE | 2020-09-22 20:38 | ERPHSYRPT ---
- History of Present Illness Time Seen by Provider: 09/22/20 20:30 Source: patient Exam Limitations: no limitations Physician History: 1-year-old white female who was pulling weeds in her yard recently and has developed a pruritic red rash on the face a small area of the forehead and the right elbow. Is itching and burning. no mhelp From OTC meds. Timing/Duration: gradual onset, worse Quality: burning, itchy Severity: moderate Location: face, extremities Possible Causes: poison duyen Modifying Factors: Improves With: antihistamine Associated Symptoms: blisters Allergies/Adverse Reactions: cephalexin [From BIMA] Allergy (Verified 09/22/20 20:26) Home Medications: Aspirin EC 81 mg [Ecotrin 81 mg] 81 mg PO DAILY 06/02/17 [History] Gabapentin 300 mg PO BID 06/02/17 [History] Metformin HCl 500 mg [Glucophage 500 MG] 500 mg PO BID 06/02/17 [History] carvediloL [Carvedilol] 6.25 mg PO BID 06/02/17 [History] lisinopriL [Lisinopril] 10 mg PO DAILY 06/02/17 [History] Levothyroxine Sodium 75 Mcg [Synthroid 75 Mcg] 75 mcg PO DAILY 06/03/17 [History] Hx Tetanus, Diphtheria Vaccination/Date Given: No Hx Influenza Vaccination/Date Given: No Hx Pneumococcal Vaccination/Date Given: No - Review of Systems Constitutional: No Fever, No Chills Eyes: No Symptoms Ears, Nose, & Throat: No Symptoms Respiratory: No Cough, No Dyspnea Cardiac: No Chest Pain, No Edema, No Syncope Abdominal/Gastrointestinal: No Abdominal Pain, No Nausea, No Vomiting, No Diarrhea Genitourinary Symptoms: No Dysuria Musculoskeletal: No Back Pain, No Neck Pain Skin: Pruritis, No Rash Neurological: No Dizziness, No Focal Weakness, No Sensory Changes Psychological: No Symptoms Endocrine: No Symptoms All Other Systems: Reviewed and Negative - Past Medical History Pertinent Past Medical History: Yes Neurological History: Peripheral Neuropathy, TIA ENT History: Cataracts Cardiac History: Coronary Artery Disease, Hypertension Respiratory History: COPD Endocrine Medical History: Hyperthyroidism Musculoskeletal History: Fractures GI Medical History: Hernia History: No Pertinent History Psycho-Social History: Anxiety Female Reproductive Disorders: No Pertinent History Other Medical History: wears pessary for bladder , HX Left ankle break in 3 places, - Past Surgical History Past Surgical History: Yes Neuro Surgical History: No Pertinent History Cardiac: Cardiac Catheterization, Cardiac Stent Respiratory: No Pertinent History Gastrointestinal: No Pertinent History Genitourinary: No Pertinent History Musculoskeletal: No Pertinent History Female Surgical History: No Pertinent History Other Surgical History: carotid endarterectomy, cyst removed from back - Social History Smoking Status: Never smoker Exposure to second hand smoke: Yes Drug Use: none Patient Lives Alone: No - Nursing Vital Signs Nursing Vital Signs: Initial Vital Signs Temperature 97.4 F 09/22/20 20:21 Pulse Rate 68 09/22/20 20:21 Respiratory Rate 18 09/22/20 20:21 Blood Pressure 198/75 09/22/20 20:21 O2 Sat by Pulse Oximetry 100 09/22/20 20:21 Pain Scale Pain Intensity 0 - Physical Exam General Appearance: mild distress, alert Eye Exam: PERRL/EOMI, eyes nml inspection Ears, Nose, Throat Exam: normal ENT inspection, pharynx normal, moist mucous membranes Neck Exam: normal inspection, non-tender, supple, full range of motion Respiratory Exam: normal breath sounds, lungs clear, No respiratory distress Cardiovascular Exam: regular rate/rhythm, normal heart sounds Gastrointestinal/Abdomen Exam: soft, mass, No tenderness Back Exam: normal inspection, normal range of motion, No CVA tenderness, No vertebral tenderness Extremity Exam: normal inspection, normal range of motion Neurologic Exam: alert, oriented x 3, cooperative, normal mood/affect, sensation nml, No motor deficits Skin Exam: normal color, warm, dry, rash SpO2 Interpretation: normal SpO2: 100 O2 Delivery: Room Air - Course Nursing assessment & vital signs reviewed: Yes Ordered Tests: Medication Summary Generic Name Dose Route Start Last Admin Trade Name Freq PRN Reason Stop Dose Admin Methylprednisolone Sodium Succinate 125 mg 09/22/20 20:33 Solu-Medrol 125 Mg IM 09/22/20 20:34 STAT ONE - Progress Progress: unchanged - Departure Departure Disposition: Home Clinical Impression: Poison duyen Condition: Good Critical Care Time: No Referrals: KAVON NARANJO MD [Primary Care Provider] - Instructions: Poison [place], Poison [place], Poison [place] ([place]) Prescriptions: Prednisone 10 mg [Deltasone 10 mg] 10 mg PO TID #18 tablet
[2020-09-22] MEDS ORDERED: solu-MEDROL 125 MG ONE (20:40)
[2020-09-22 21:19] VITALS: BP 179/93; PULSE 52; O2SAT 98
== END 2020-09-22 21:10 | disposition home or self-care (01) ==
LOC: ED 20:10
DX: L23.7 Allergic contact dermatitis due to plants, except food (principal); T63.791A Toxic effect of contact with other venomous plant, accidental (unintentional), initial encounter
CPT/HCPCS: 96372; 99283; J2930